=== PATIENT | female | born 1990 | race Caucasian/White ===

== ENCOUNTER → 2017-04-22 | Outpatient (CLI) | payer BC ==
[~2017-04-22] MED LIST: CLIN300C2 PO; PRENTAB26 PO
== END | disposition home or self-care (01) ==
LOC: C.LAB1850 14:28
PROVIDERS: ATTEND Obstetrics & Gynecology
DX: O20.0 Threatened abortion (principal); Z3A.00 Weeks of gestation of pregnancy not specified

== ENCOUNTER → 2017-05-06 | Outpatient (CLI) | payer BC ==
[~2017-05-06] MED LIST changes: -CLIN300C2 PO
[2017-05-06 11:33] LABS: URINE APPEARANCE CLEAR (CLEAR); URINE BILIRUBIN NEG (NEG); URINE COLOR YELLOW; URINE EPITHELIAL CELL AUTO 20-30 /lpf (0-5); URINE NITRITE NEG (NEG); URINE PH 6.5 (4.5-7.5); URINE SPECIFIC GRAVITY 1.023 (1.000-1.030); UROBILINOGEN NEG (NEG)
[2017-05-06 11:34] LABS: MANUAL MICROSCOPIC REQUIRED? NO; REVIEW REQ? NO
== END | disposition home or self-care (01) ==
LOC: C.LABSPEC 10:56
PROVIDERS: ATTEND Obstetrics & Gynecology
DX: Z34.01 Encounter for supervision of normal first pregnancy, first trimester (principal)

== ENCOUNTER → 2017-05-17 | Outpatient (CLI) | payer BC ==
[2017-05-17 14:31] LABS: BASO % 0.2 %; BASO ABS # 0.03 K/uL (0-0.2); COMPLETE YES; EOS % 1.3 %; HEMATOCRIT 37.4 % (37-47); IG% 0.2 %; LYMPH % 23.2 %; LYMPH ABS # 2.89 K/uL (1.2-3.4); MEAN CELL VOLUME 86.6 fL (80-100); MEAN CORPUSCULAR HEMOGLOBIN 29.6 pg (25-34); MEAN CORPUSCULAR HGB CONC 34.2 g/dl (32-36); MEAN PLATELET VOLUME 9.6 fL (7.4-10.4); MONO % 7.2 %; NEUT % 67.9 %; PLATELET COUNT 284 K/uL (130-400); RED BLOOD COUNT 4.32 M/uL (4.2-5.4); WHITE BLOOD COUNT 12.44 K/uL (4.8-10.8)
[2017-05-21 02:05] LABS: CHLAMYDIA TRACH RNA*** NOT DETECTED (NOT DETECTED); GC (NEIS GONORRHOEAE)RNA** NOT DETECTED (NOT DETECTED)
== END | disposition home or self-care (01) ==
LOC: C.LAB1850 12:55
PROVIDERS: ATTEND Obstetrics & Gynecology
DX: Z34.01 Encounter for supervision of normal first pregnancy, first trimester (principal); Z3A.00 Weeks of gestation of pregnancy not specified

== ENCOUNTER → 2017-05-17 | Outpatient (CLI) | payer BC | END | disposition home or self-care (01) | LOC: C.PAPS 16:39 | PROVIDERS: ATTEND Obstetrics & Gynecology | DX: Z34.01 Encounter for supervision of normal first pregnancy, first trimester (principal) ==

== ENCOUNTER → 2017-07-04 | Outpatient (CLI) | payer OTHER | END | disposition home or self-care (01) | LOC: C.LAB1850 09:17 | PROVIDERS: ATTEND Obstetrics & Gynecology | DX: Z34.02 Encounter for supervision of normal first pregnancy, second trimester (principal) ==

== ENCOUNTER → 2017-07-13 | Outpatient (CLI) | payer OTHER | END | disposition home or self-care (01) | LOC: C.LAB1850 09:06 | PROVIDERS: ATTEND Obstetrics & Gynecology | DX: O28.1 Abnormal biochemical finding on antenatal screening of mother (principal) ==

== ENCOUNTER 2017-08-20 10:37 | Outpatient (CLI) | payer OTHER | END 2017-08-20 11:15 | disposition home or self-care (01) | LOC: C.OPB 10:37 → C.LD 10:39 → C.OPB 11:15 | PROVIDERS: ATTEND Obstetrics & Gynecology | DX: Z34.02 Encounter for supervision of normal first pregnancy, second trimester (principal); Z3A.23 23 weeks gestation of pregnancy; W00.9XXA Unspecified fall due to ice and snow, initial encounter ==

== ENCOUNTER 2017-08-20 11:22 | Emergency (ER) | payer OTHER ==
[~2017-08-20] VITALS: Ht 165.1 cm; Wt 117.1 kg
[2017-08-20 11:39] VITALS: BP 139/90; TEMP 36.8; Ht 165.1 cm; Wt 117.1 kg
--- NOTE | 2017-08-20 12:51 | DIAGNOSTIC IMAGING REPORT ---
L KNEE 3 VIEWS HISTORY: 27 years-old Female fall, injury, eval fracture, dislocation acute left knee pain status post fall COMPARISON: None available TECHNIQUE: 3 views of the left knee FINDINGS: There is mild soft tissue swelling about the knee which is most pronounced medially without acute fracture, dislocation or significant degenerative changes. No opaque foreign body or large joint effusion identified. IMPRESSION: Mild soft tissue swelling without fracture or dislocation. The above report was generated using voice recognition software. It may contain grammatical, syntax or spelling errors. Electronically signed by: Yuniel Nolan M.D. 08/20/2017 12:50 PM Dictated Date/Time: 08/20/2017 12:49 PM
--- NOTE | 2017-08-20 13:21 | EMERGENCY ROOM VISIT NOTE ---
ED Visit Note First contact with patient: 11:44 CHIEF COMPLAINT: Left knee pain HISTORY OF PRESENT ILLNESS: This 19-year-old female patient presents to the emergency department by private vehicle after sustaining an injury to the left knee from falling earlier today. Patient states she was walking into work and slipped on some ice, fell forward onto her left anterior knee, and then forward onto her abdomen. The patient denies abdominal pain and denies any other injuries besides their knee. She did not hit her head, denies LOC. The patient notes some mild swelling and bruising. There is pain with bending and straightening the knee. She reports mild swelling and also has noted an abrasion to the anterior knee. She rates the pain as achy and 5/10. The patient states they are able to walk on it, but have been walking with a limp to reduce pain. No numbness or tingling of the extremity. No previous injuries or surgeries to this knee. No ankle, foot or hip pain. Patient is currently 23 weeks , she was evaluated upstairs in labor and delivery and cleared by them prior to being sent to the ER for further evaluation of her knee. REVIEW OF SYSTEMS: A 6 system review of systems was completed with positives and pertinent negatives listed in the HPI. ALLERGIES: Reviewed in chart. MEDICATIONS: Reviewed in chart. PMH: No significant past medical or surgical history. SOCIAL HISTORY: Lives at home with family. She denies tobacco use, alcohol or recreational drug use. PHYSICAL EXAM: Vital Signs: Reviewed Nurse's notes, vital signs stable. GENERAL : Pleasant and cooperative, no acute distress, but appears in some pain, well- developed, well-nourished. MENTAL STATUS: Alert, oriented to person place and time, and cooperative. MUSCULOSKELETAL: The left knee is mildly swollen. There is mild ecchymosis. There is no joint effusion present. The patient is tender over the patella and surrounding area. There is a superficial abrasion over the anterior knee, no active bleeding or debris within the wound. There is no joint line tenderness. The patella does not subluxate. Range of motion is somewhat limited due to pain. Strength of the quads and hamstrings is 5/5. No ligamentous instability of the knee joints. There is no pain with varus and valgus stressing. The foot and toes are warm and well-perfused. Dorsalis pedis pulse 2+. Sensation to pain and light touch is intact. Capillary refill less than 2 seconds. EMERGENCY DEPARTMENT COURSE: I examined the patient. Differential diagnosis includes knee contusion, abrasion, hematoma, joint effusion, fracture, subluxation, among others. X-rays of the left knee were reviewed by myself and read by radiology and reveal no acute bony abnormality. The patient was offered a knee immobilizer and crutches, she declined these. Her abrasion was cleansed, antibiotic ointment applied and her knee was wrapped with an Cale wrap. She was able to walk on the knee without much pain. I did instruct her to rest the knee as much as possible and keep it elevated, and to follow-up with her primary care provider if her knee pain is not improving. She was educated regarding wound care, follow-up, and return precautions, she verbalized understanding. The patient was discharged home in stable condition and ambulatory. Current/Historical Medications Scheduled Multivit/Min/Iron/Fol Ac/Pren ( Vitamin), 1 TAB PO DAILY Allergies Coded Allergies: Penicillins (Verified Allergy, Unknown, RASH, 08/20/17) Vital Signs Date Time Temp Pulse Resp B/P (MAP) Pulse Ox O2 Delivery O2 Flow Rate FiO2 08/20/17 13:34 90 18 99 08/20/17 11:39 36.8 95 20 139/90 96 Room Air Departure Information Impression Primary Impression: Contusion of knee, left Additional Impression: Abrasion of knee, left Dispostion Home / Self-Care Condition GOOD Referrals No Doctor, Assigned (PCP) Patient Instructions ED Contusion Lower Ext, My [facility] Additional Instructions You have been treated in the Emergency Department for Knee Pain. X-ray of your knee does not show any fracture or dislocation. For pain control, you can use the following [id number] medicines (if >12 yo): - Regular strength (325mg/tab) Tylenol (acetaminophen) 2 tabs every 4-6 hours as needed. Do not exceed 10 tablets in a 24 hour period. Avoid taking more than 3000 mg of Tylenol per day. This includes any other sources of acetaminophen you may take on a regular basis. If this is a recent injury (<24 hrs), ice can be applied to the area of pain for the first 3 days to help decrease pain and inflammation. Ice massages can be performed by freezing water in a paper cup, peeling back the cup to expose the ice and then massaging over the affected area. Keep the wound on your knee clean and dry. You may wash with soap and warm water, then pat dry. Do not submerge the wound under water until the sutures have been removed. Use an antibiotic ointment for 3-4 days, then let wound dry. Keep covered with a Band-Aid. As with all lacerations and abrasions, there may be temporary or permanent nerve damage or scarring. Keep covered when in sun until fully healed, then sunscreen to the area for one year to help prevent darkening of the scar. Vitamin E oil if desired two weeks after suture removal for reduction of scar. Please follow-up with your primary care provider in the next 3-4 days if you are still having pain in the knee. Please seek immediate medical attention for any signs of infection (increasing redness, pain, swelling, pus drainage, streaking up the leg, fever/chills). Work Instructions Return To Work: 1 day Problem Qualifiers Primary Impression: Contusion of knee, left Encounter type: initial encounter Qualified Codes: S80.02XA - Contusion of left knee, initial encounter Additional Impression: Abrasion of knee, left Encounter type: initial encounter Qualified Codes: S80.212A - Abrasion, left knee, initial encounter
[2017-08-20 13:34] VITALS: PULSE 90; O2SAT 99
== END 2017-08-20 13:36 | disposition home or self-care (01) ==
LOC: C.EDB 11:24 → C.EDD 13:36
DX: S80.02XA Contusion of left knee, initial encounter (principal); S80.212A Abrasion, left knee, initial encounter; W00.0XXA Fall on same level due to ice and snow, initial encounter; Y99.0 Civilian activity done for income or pay; Z33.1 Pregnant state, incidental; Z88.0 Allergy status to penicillin

== ENCOUNTER → 2017-09-24 | Outpatient (CLI) | payer OTHER | END | disposition home or self-care (01) | LOC: C.LABSPEC 11:01 | PROVIDERS: ATTEND Obstetrics & Gynecology | DX: Z34.03 Encounter for supervision of normal first pregnancy, third trimester (principal) ==

== ENCOUNTER → 2017-10-05 | Outpatient (CLI) | payer OTHER ==
[2017-10-05 10:45] LABS: HEMATOCRIT 36.2 % (37-47); HEMOGLOBIN 12.1 g/dL (12.0-16.0)
== END | disposition home or self-care (01) ==
LOC: C.LAB1850 08:54
PROVIDERS: ATTEND Obstetrics & Gynecology
DX: Z34.03 Encounter for supervision of normal first pregnancy, third trimester (principal)

== ENCOUNTER 2017-10-09 17:46 | Outpatient (CLI) | payer OTHER ==
[~2017-10-09] VITALS: Ht 165.1 cm; Wt 115.5 kg
[2017-10-09] MEDS ORDERED: LACTATED RINGER'S 1000ML 1,000 ML IV SCH (18:08)
[2017-10-09] MEDS ORDERED: BETAMETH SOD PHOS/ACETATE IA 6 MG/ML IM STA (18:11)
[2017-10-09] MEDS ORDERED: CEFAZOLIN SOD 1000MG/7.5 ML IV PUSH IV STA (18:12)
[2017-10-09] MEDS ORDERED: AZITHROMYCIN 250 MG TAB PO ONE (18:15)
[2017-10-09] MEDS ORDERED: CEFAZOLIN IV 1,000 MG in SYRINGE 0 ML IV SCH (18:45)
[2017-10-09 18:51] VITALS: Ht 165.1 cm; Wt 115.5 kg
== END 2017-10-09 19:42 | disposition short-term general hospital (02) ==
LOC: C.LD 17:46 → C.OPB 17:46
PROVIDERS: ATTEND Obstetrics & Gynecology
DX: O42.913 Preterm premature rupture of membranes, unspecified as to length of time between rupture and onset of labor, third trimester (principal); Z3A.30 30 weeks gestation of pregnancy; Z22.330 Carrier of Group B streptococcus

== ENCOUNTER 2020-11-04 07:39 | Inpatient (IN) ==
[2020-11-04] MEDS ORDERED: LACTATED RINGER'S 1,000 ML IV PRN (07:55)
[2020-11-04] MEDS ORDERED: OXYTOCIN 30 UNITS/500 ML BAG IV PRN ×2 (07:55→18:15)
[2020-11-04 08:15] LABS: Hematocrit (blood only) 32.6 % (37-47); Hemoglobin 10.8 g/dL (12.0-16.0); Mean Corpuscular Hemoglobin 26.7 pg (25-34); Mean Corpuscular Hgb Conc 33.1 g/dL (32-36); Mean Corpuscular Volume 80.7 fL (80-100); Mean Platelet Volume 8.8 fL (7.4-10.4); Platelet Count 281 K/uL (130-400); RDW Coefficient of Variation 14.1 % (11.5-14.5); RDW Standard Deviation 41.4 fL (36.4-46.3); Red Blood Count 4.04 M/uL (4.2-5.4); White Blood Count 10.71 K/uL (4.8-10.8)
[2020-11-04] MEDS ORDERED: PENICILLIN G POTASSIUM 6 MU in DEXTROSE 5% 250 ML IV ONE (08:30)
--- NOTE | 2020-11-04 09:19 | History & Physical Report ---
Date of Service November 04, 2020 Assessment & Plan (1) : 30 y/o at 39w0d who presents for IOL/AROM. A pos. RI. GBS pos. - 5cm dilated during 11/03 office visit (/-2). membranes stripped at that time. 6cm (/-1) dilated during admission cervical check today - per patient preference, will not be using pitocin - AROM attempt at 0955: trickle of clear fluid. May need to reattempt AROM. - category 1 tracing - slightly elevated blood pressure x 1. 141/78 this admission. 124/76 on repeat. asymptomatic, no visual changes, headache, nausea/vomiting, or abd pain. Patient denies hx of HTN. Plt count this admission 288. no additional labwork indicated at this time. office BPs were 120s-130s over 80s. - NPO - LR 125/hr - anesthesiology consulted - continue routine care - 11/04 covid test neg (2) Insulin controlled gestational diabetes mellitus (GDM) during : - stable - per patient: home BSG goal was fasting <80. <110 after meals. 40-45u novolin n qhs. novolog 16u breakfast. 20-28u lunch and 20-28u dinner - last insulin was this AM 6am - BSG 103 this admission - check BSG q4h (3) Group B streptococcal infection in : - had penicillin rash during childhood. patient states ok to receive because has received it during first and did not have reaction - will treat w/ penicillin G q4h until delivery (4) History of delivery, currently : - s/p weekly Keshia from 16w-36w Admission and Anticipated Discharge Date Admission Date: November 04, 2020 History of Present Illness Primary Care Provider: NO PCP Mary Beth Katherine is a 30 y/o at 39w0d ([facility] 11/11/20 via [facility]) who presents for AROM/IOL. complicated by insulin-controlled GDM, GBS+, and hx of labor (completed [place]). + contractions; + movement; - fluid loss; + bloody show Had regular appointments with OB. Labs: (04/08/20) Blood type: A pos Antibody screen: neg H.8 (today) Hct: 32.6 (today) WBC: 10.71 (today) Plt: 281 (today) Rubella: immune RPR: nonreactive Gonorrhea: not detected Chlamydia: not dtected HIV: neg HbSAg: neg GBS: pos 10/18/20 Labs Reviewed: cfdna insufficient first drawn, low risk second. akh cf/sma neg previous akh GDM during prior Allergies Allergy/AdvReac Type Severity Reaction Status Date / Time Penicillins Allergy Unknown RASH, HIVES Verified 11/03/20 14:41 Home Medications Medication Instructions Recorded Confirmed Type prenat.vits,zi,eua-oktp-skohf 1 tab PO DAILY 08/14/19 11/03/20 History acetone (urine) test #50 ea 05/03/20 11/03/20 Rx blood sugar diagnostic #150 ea 05/03/20 11/03/20 Rx blood-glucose meter #1 ea 05/03/20 11/03/20 Rx lancets #102 ea 05/03/20 11/03/20 Rx insulin NPH isoph U-100 human 100 10 unit SUBCUT QPM #15 ml 08/09/20 11/03/20 Rx unit/mL (3 mL) subcutaneous pen pen needle, diabetic 32 gauge x #100 ea 08/09/20 11/03/20 Rx 32" Novolog Flexpen U-100 Insulin 100 8 unit SUBCUT TID #15 ml NS 09/23/20 11/03/20 Rx unit/mL (3 mL) subcutaneous Patient History Medical History (Updated 11/04/20 @ 10:05 by Stevenson Castaneda MD) Gestational diabetes History of chicken pox History of rib fracture Missed with demise before 20 completed weeks of gestation Obesity Polycystic ovarian syndrome premature rupture of membranes (PPROM) with unknown onset of labor Surgical History History of mandibular surgery S/P dilatation and curettage S/P tonsillectomy S/P wisdom tooth extraction Family History Grandfather Myocardial infarction Grandmother Myocardial infarction Grandfather (Maternal) Cardiac disorder Diabetes Mother Depression Hypertension Gestational diabetes Brother Down syndrome Denies family history of Ovarian cancer Prostate cancer Breast cancer Colorectal cancer Social History (Updated 04/04/20 @ 11:18 by Bernie Bansal Smoking Status: Never smoker Second Hand Exposure: No; Hx Alcohol Use: No Hx Substance Use: No Preferred Language: [place] Islander Communication Ability: Effective Visual Impairment: No Limitations Hearing Ability: Normal Beliefs That Will Affect Care: None marital status: marital status details: Nicola Scherer (27) [phone] Current Living Situation: Spouse and Family Current Living Situation Comment: lives with spouse, son, no pets current occupational status: employed current occupation: [employer] Feels Safe at Home: Yes Childhood Exposure to Second-Hand Smoke: No Dental Care, Regularly: Yes Physical Activity Frequency: Does not Exercise Seatbelt Use: always Sunscreen Use: Yes Assistive Devices: Glasses Review of Systems Denies fever, chills, sweats Denies shortness of breath, difficulty breathing, chest pain, palpitations, chest pressure. Mild breast discomfort + heartburn Denies dysuria. Denies headache or changes in vision. Denies nausea/vomiting. Denies numbness, tingling, weakness. Denies calf pain. Denies current mood complaints. Physical Exam Physical Exam: General: Alert, oriented. No acute distress. Cardiac: Regular rate and rhythm, no murmurs/rubs/gallops. Respiratory: Clear to auscultation bilaterally, no wheezes/rales/rhonchi. No increased work of breathing. Symmetrical chest rise. No respiratory distress. Abdomen: Gravid. Pelvic: Dilation 6cm; Effacement 80%; Station -1. Soft. Posterior. EFW low 7s. Exam per Dr. Valle. AROM attempt at 0955. Trickle of clear fluid. Lower Extremities: No lower extremity edema or swelling. No deep calf pain. Camden's negative bilaterally Results & Data ([facility]) Vital Signs (Past 12 Hours) Vital Signs Temp Pulse Resp BP 11/04/20 08:40 36.9 C 18 11/04/20 08:00 83 141/78 H Code Status & VTE Plan Code Status full VTE Prophylaxis Plan VTE Prophylaxis will be ordered: No Monitoring External Monitor External FHT and external uterine monitors used; Category 1 tracing; moderate FHT variability. baseline 140bpm initially, more recently 130bpm. + accelerations. + early deceleration. No variable or late decelerations. Tocodynamometer External toco: no sustained contractions Supervising Physician Co-Signing Physician Notes Resident Physician Supervision Note: I interviewed and examined the patient. Discussed with Dr.Lawrence Castaneda and agree with findings and plan as documented in the note. Any exceptions or clarifications are listed here: [None] Documented By: Angela Valle MD, FACOG (1) Weeks of gestation: 39 weeks Qualified Code(s): Z3A.39 - 39 weeks gestation of
[2020-11-04] MEDS: PENICILLIN G POTASSIUM 3 MU in DEXTROSE 5% 100 ML IV PRN ×2 (12:30→16:18)
[2020-11-04] MEDS ORDERED: LIDOCAINE 1% LOCAL 20 ML VIAL ONE (17:53)
[2020-11-04] MEDS ORDERED: HYDROCORTISONE ACETATE 25 MG SUPP PR PRN (18:15)
[2020-11-04] MEDS ORDERED: SUPERCREAM 0.870% 15 GM JAR EXT PRN (18:15)
[2020-11-04] MEDS ORDERED: oxyCODONE/ACETAMINOPHEN 5mg/325mg TAB PO PRN (18:15)
[2020-11-04] MEDS ORDERED: BENZOCAINE 20% AER SPR 82.5 GM CAN EXT PRN (18:15)
[2020-11-04] MEDS ORDERED: DIPHTHERIA/TETANUS/PERTUSSIS 0.5 ML SYR/VIAL IM ONE (18:15)
[2020-11-04] MEDS ORDERED: bisacodyL 10 MG SUPP PR PRN (18:15)
--- NOTE | 2020-11-04 18:33 | Delivery Summary ---
Vaginal Delivery Summary Date of Service November 04, 2020 The patient is a 30-year-old 3 para 0-1-0-1 1 white female who presents at 39 weeks for induction of labor because of gestational diabetes controlled with insulin. The was also complicated by positive group B strep vaginal culture. She presented to labor and delivery this morning at 5 cm dilation. She was having no discernible contractions upon arrival. She received her first dose of penicillin and approximately an hour later her membranes were ruptured for clear fluid. She progressed in labor to full dilation, and pushed effectively over intact perineum for delivery of a viable female infant. After the head was delivered the rest of the delivered easily, and was placed on the mother's abdomen for further attention and drying. The infant was vigorous and moving all 4 limbs. The placenta was expressed intact with a three-vessel cord. This was an unmedicated , and a first- degree vaginal laceration was repaired with 3-0 chromic in the standard fashion. 1% lidocaine was used to anesthetize the area of the repair. Estimated blood loss was 200 cc. bleeding was controlled with dilute Pitocin. Mother and are doing well after delivery. Vaginal Delivery Summary and 1st Degree [facility] [place] Charge Delivery Type Details: and 1st Degree LAC
[2020-11-04] MEDS: IBUPROFEN 600 MG TAB PO PRN ×2 (19:01→23:12)
[2020-11-04] MEDS: DOCUSATE SODIUM 100 MG CAP PO SCH (21:12)
[2020-11-05] MEDS: ACETAMINOPHEN 325 MG TAB PO PRN (02:23)
[2020-11-05] MEDS: IBUPROFEN 600 MG TAB PO PRN ×5 (04:16→21:19)
[2020-11-05 05:57] LABS: Hemoglobin 9.4 g/dL (12.0-16.0); Mean Corpuscular Hemoglobin 26.6 pg (25-34); Mean Corpuscular Hgb Conc 32.4 g/dL (32-36); Mean Corpuscular Volume 82.2 fL (80-100); Platelet Count 253 K/uL (130-400); RDW Coefficient of Variation 14.2 % (11.5-14.5); RDW Standard Deviation 42.7 fL (36.4-46.3); Red Blood Count 3.53 M/uL (4.2-5.4); White Blood Count 14.43 K/uL (4.8-10.8)
--- NOTE | 2020-11-05 06:40 | Obstetrical Progress Note ---
Date of Service <Stevenson Castaneda MD - Last Filed: 11/05/20 07:48> November 05, 2020 Assessment & Plan <Stevenson Castaneda MD - Last Filed: 11/05/20 07:48> (1) state: 30 y/o at 39w0d who is s/p on 11/04, PPD1. A pos. RI. GBS pos, s/p PCN x3. - meeting PPD1 milestones - ambulating, , voiding, lochia mild - vitals stable - cbc reviewed. Hb 9.4. daily iron supp until 6 wk f/u - continue routine care - tentative dispo 5/30 AM (2) Group B streptococcal infection in : - s/p PCN treatment (3) Insulin controlled gestational diabetes mellitus (GDM) during : - BSG check at 6 week f/u Subjective <Stevenson Castaneda MD - Last Filed: 11/05/20 07:48> Ambulation: ambulating normally Voiding: no voiding problems Passing Gas:: Yes Diet Tolerance:: regular diet Lochia:: Moderate Feeding Type:: breast feeding Current Pain Level(1-10): 2 (4 when cramping) For dispo, tentatively tomorrow am, will discuss w/ . No complaints. Doing well. Review of Systems Denies fever, chills, sweats Denies shortness of breath, chest pain, palpitations. Denies breast pain. + mild burning w/ urination, attributes to stitches Denies headache or changes in vision. Denies nausea/vomiting. Denies numbness, tingling, weakness. Denies calf pain. Denies mood complaints. Physical Exam <Stevenson Castaneda MD - Last Filed: 11/05/20 07:48> General: Alert, oriented. No acute distress. Cardiac: Regular rate and rhythm, no murmurs/rubs/gallops. Respiratory: Clear to auscultation bilaterally, no wheezes/rales/rhonchi. No respiratory distress. Abdomen: , soft. Uterus: Uterine fundus firm, palpable periumbilical. Lower Extremities: No lower extremity edema or swelling. No deep calf pain. Camden's negative bilaterally. Results & Data ([facility]) <Stevenson Castaneda MD - Last Filed: 11/05/20 07:48> Vital Signs (Past 12 Hours) Vital Signs Temp Pulse Pulse Resp BP BP Pulse Ox 11/05/20 04:00 36.8 C 72 16 118/77 98 11/04/20 23:10 36.7 C 83 18 126/82 99 11/04/20 20:55 37.2 C 85 18 128/84 97 11/04/20 20:11 36.7 C 78 18 134/68 11/04/20 19:56 79 131/70 11/04/20 19:41 75 16 127/64 11/04/20 19:26 88 132/63 11/04/20 19:11 36.8 C 84 18 142/66 H 11/04/20 18:56 42 L 140/72 11/04/20 18:41 78 134/68 11/04/20 18:40 18 11/04/20 18:27 88 134/64 11/04/20 18:25 18 Medications Administered <Angela Valle MD, FACOG - Last Filed: 11/05/20 08:03> Co-Signing Physician Notes Resident Physician Supervision Note: I interviewed and examined the patient. Discussed with Dr. Stevenson Castaneda and agree with findings and plan as documented in the note. Any exceptions or clarifications are listed here: [None] Documented By: Angela Valle MD, FACOG
[2020-11-05] MEDS: PRENATAL VITAMIN 1 TAB PO SCH (07:47)
[2020-11-05] MEDS: DOCUSATE SODIUM 100 MG CAP PO SCH ×2 (07:47→21:20)
[2020-11-05] MEDS ORDERED: bisacodyL 5 MG TABEC PO SCH (20:00)
[2020-11-06] MEDS: IBUPROFEN 600 MG TAB PO PRN ×2 (01:20→05:08)
[2020-11-06 06:10] LABS: Hematocrit (blood only) 28.9 % (37-47); Hemoglobin 9.3 g/dL (12.0-16.0)
[2020-11-06] MEDS: PRENATAL VITAMIN 1 TAB PO SCH (07:47)
[2020-11-06] MEDS: ACETAMINOPHEN 325 MG TAB PO PRN (07:47)
[2020-11-06] MEDS: DOCUSATE SODIUM 100 MG CAP PO SCH (07:47)
--- NOTE | 2020-11-06 08:54 | Obstetrical Progress Note ---
Date of Service November 06, 2020 Assessment & Plan (1) state: PPD#2 doing well. DC instructions reviewed, followup in office 6w. Subjective Ambulation: ambulating normally Voiding: no voiding problems Diet Tolerance:: regular diet Lochia:: Moderate Review of Systems All systems reviewed & are unremarkable except as noted in HPI & below Physical Exam Constitutional WD/WN, vitals as above no acute distress Respiratory normal respiratory effort Cardiovascular Rate/Rhythm: regular rate and regular rhythm Gastrointestinal (Abdomen) Inspection/Auscultation: abdomen normal to inspection; abdomen not distended Percussion/Palpation: abdomen soft Genitourinary OB Exam Abdomen: + fundal height Fundus: + firm; not tender Results & [facility] ([facility]) Vital Signs (Past 12 Hours) Vital Signs Temp Pulse Resp BP Pulse Ox 11/06/20 07:25 36.8 C 64 18 117/74 99 11/06/20 07:20 36.5 C 75 18 125/80 75 L 11/05/20 23:45 36.5 C 70 18 114/78
== END 2020-11-06 09:50 | disposition home or self-care (01) | DRG 807 ==
LOC: 4S1 07:39 → 4S2 21:02

== ENCOUNTER 2020-11-28 15:26 | Inpatient (IN) ==
--- NOTE | 2020-11-28 17:18 | Emergency Department Note ---
Impression & Plan Abscess of breast, Acute breast pain ED Provider Note NAME: BEAU GARCIA AGE: 30 SEX: F : 1990 ARRIVES VIA: Walk-In INFORMANT: Patient, ED PROVIDER(S): Sukhi Pat MD Chief Complaint: Breast pain, possible abscess HPI: Patient does present with almost 10 days of discomfort over the right jenn[address]. The patient states initially this is thought to be a clogged duct and the patient had been applying gentle massage as well as warm compresses. Patient states that subsequently the patient did have an outpatient ointment with IMPLEMENTATION SPECIALIST and started on dicloxacillin. The patient was subsequently seen in [facility] and did have an ultrasound which showed possible abscess. The patient was then started on clindamycin instead of the dicloxacillin. The patient did have an outpatient appointment with the IMPLEMENTATION SPECIALIST was referred here for further evaluation and treatment patient denies any fevers or chills. Patient denies any nausea or vomiting. The patient denies any complications or issues. ROS: See HPI for pertinent positives and negatives. A total of 10 systems were reviewed and otherwise negative. Past medical history: See below Surgical history: See below Social history: See below Physical Exam: GENERAL: A mask. NAD, non-toxic. EYE EXAM: Normal conjunctiva. PERRL, no anisocoria and EOM's grossly intact w/o pain. NECK: Supple, no nuchal rigidity, no adenopathy, non-tender. No signs of meningismus. Chest: Right breast with 12 x 8 cm area of erythema with central area of induration with no obvious fluctuance or drainage. LUNGS: Clear to auscultation. Normal chest wall mechanics. HEART: NSR, no MRG. ABDOMEN: Abdomen soft, non-tender, normo-active bowel sounds, no masses, no rebound or guarding. BACK: No CVA TTP. SKIN: No rashes and no bruising. UPPER EXTREMITIES: Upper extremities are grossly normal. LOWER EXTREMITIES: Grossly normal, no edema. NEURO EXAM: A&O x3, cranial nerves II-XII grossly intact, normal speech, moves all 4 extremities on command w/o issue. Differential diagnoses: Cellulitis, abscess, MRSA infection, DVT, necrotizing fasciitis, dermatitis, drug eruption, allergic reaction, as well as other pathologies. Course: Patient was seen and evaluated the bedside. Full history physical exam was performed. Imaging Studies: See below Cardiac monitoring: An order was placed for continuous cardiac monitoring. The monitor shows a rate of 76 with sinus rhythm. MDM: Patient was seen due to concern for possible abscess versus receiving abscess. The patient was ordered Rocephin as the patient was ordered already on MRSA therapy. Given the indurated area unsure initially as whether not there was an area to be drained. Breast ultrasound ordered along with blood work. Blood work fairly unremarkable. Ultrasound does show concern for sick centimeter abscess versus phlegmon. I did speak the on-call general surgery team Wero Rendon PA-C and the patient was admitted to the general surgery service pending operative treatment tomorrow morning. Past Med/Surg History Medical History History of chicken pox History of rib fracture Missed with demise before 20 completed weeks of gestation Obesity Polycystic ovarian syndrome premature rupture of membranes (PPROM) with unknown onset of labor Surgical History History of mandibular surgery S/P dilatation and curettage S/P tonsillectomy S/P wisdom tooth extraction Family History Grandfather Myocardial infarction Grandmother Myocardial infarction Grandfather (Maternal) Cardiac disorder Diabetes Mother Depression Hypertension Gestational diabetes Brother Down syndrome Denies family history of Ovarian cancer Prostate cancer Breast cancer Colorectal cancer Social History Smoking Status: Never smoker Second Hand Exposure: No; Hx Alcohol Use: No Hx Substance Use: No Preferred Language: Czech Communication Ability: Effective Visual Impairment: No Limitations Hearing Ability: Normal Beliefs That Will Affect Care: None marital status: marital status details: Nicola Scherer (27) [phone] Current Living Situation: Spouse and Family Current Living Situation Comment: lives with spouse, son, no pets current occupational status: employed current occupation: [employer]- [employer] Feels Safe at Home: Yes Childhood Exposure to Second-Hand Smoke: No Dental Care, Regularly: Yes Physical Activity Frequency: Does not Exercise Seatbelt Use: always Sunscreen Use: Yes Assistive Devices: None Allergies Allergies Allergy/AdvReac Type Severity Reaction Status Date / Time No Known Drug Allergies Allergy Unknown Verified 11/28/20 18:17 Home Meds Home Medications Medication Instructions Recorded Confirmed prensameera.vits,zi,[id number]-lrnd-cbusi 1 tab PO QAM 08/14/19 11/28/20 acetaminophen [Tylenol Extra 1,000 mg PO Q6H PRN 11/28/20 11/28/20 Strength] clindamycin HCl 300 mg capsule 300 mg PO Q4H cap 11/28/20 11/28/20 ibuprofen 600 mg PO Q6H PRN 11/28/20 11/28/20 Results & Data (ED) Vital Signs Vital Signs - 24 hr 11/28/20 15:29 11/28/20 16:27 11/28/20 19:32 Temperature 36.7 C Temperature Source Temporal Artery Scan Pulse Rate 79 78 Pulse Rate [Right Finger] 75 78 Pulse Rhythm Regular Pulse Rhythm [Right Finger] Regular Pulse Strength Normal Pulse Strength [Right Finger] Normal Respiratory Rate 20 18 20 Respiratory Effort / Characteristics Non-Labored Spontaneous Non-Labored Respiratory Depth Normal Normal Respiratory Pattern Regular Regular Blood Pressure 137/93 Blood Pressure [Right Arm] 148/87 H 134/84 Blood Pressure Mean 107 Blood Pressure Mean [Right Arm] 107 100 Blood Pressure Position Sitting Blood Pressure Position [Right Arm] Sitting Pulse Oximetry 100 97 98 Oxygen Delivery Method Room Air Room Air Room Air Sepsis Recent Fever Within 48 Hours No Sepsis New/Unexplained Change in Mental Status No Sepsis Action Taken by Nursing No Action Required 11/28/20 19:53 11/28/20 20:46 11/28/20 22:24 Temperature Temperature Source Pulse Rate Pulse Rate [Right Finger] 74 60 76 Pulse Rhythm Pulse Rhythm [Right Finger] Regular Regular Regular Pulse Strength Pulse Strength [Right Finger] Normal Normal Normal Respiratory Rate 18 19 18 Respiratory Effort / Characteristics Non-Labored Non-Labored Non-Labored Respiratory Depth Normal Normal Normal Respiratory Pattern Regular Regular Regular Blood Pressure Blood Pressure [Right Arm] 139/84 140/72 131/76 Blood Pressure Mean Blood Pressure Mean [Right Arm] 102 94 94 Blood Pressure Position Blood Pressure Position [Right Arm] Sitting Pulse Oximetry 99 99 99 Oxygen Delivery Method Room Air Room Air Room Air Sepsis Recent Fever Within 48 Hours Sepsis New/Unexplained Change in Mental Status Sepsis Action Taken by Correction Medications Current Medication List: was personally reviewed by me Laboratory Data Attestation: I reviewed the patient's lab results. Result diagrams: 11/28/20 18:48 11/28/20 18:48 Lab Results 11/28/20 11/28/20 11/28/20 Range/Units 18:48 18:48 21:58 WBC 9.62 (4.8-10.8) K/uL RBC 4.01 L (4.2-5.4) M/uL Hgb 10.6 L (12.0-16.0) g/dL Hct 32.9 L (37-47) % MCV 82.0 (80-100) fL MCH 26.4 (25-34) pg MCHC 32.2 (32-36) g/dL RDW Std Deviation 41.7 (36.4-46.3) fL RDW Coeff of Ovidio 13.8 (11.5-14.5) % Plt Count 392 (130-400) K/uL MPV 8.6 (7.4-10.4) fL Immature Gran % (Auto) 0.3 % Neut % (Auto) 67.5 % Lymph % (Auto) 21.0 % Crenshaw % (Auto) 6.8 % Eos % (Auto) 4.0 % Baso % (Auto) 0.4 % Neut # (Auto) 6.50 (1.4-6.5) K/uL Lymph # (Auto) 2.02 (1.2-3.4) K/uL Crenshaw # (Auto) 0.65 H (0.11-0.59) K/uL Eos # (Auto) 0.38 (0-0.5) K/uL Baso # (Auto) 0.04 (0-0.2) K/uL Immature Gran # (Auto) 0.03 H (0.00-0.02) K/uL Sodium 139 (136-145) mmol/L Potassium 4.0 (3.5-5.1) mmol/L Chloride 108 H (98-107) mmol/L Carbon Dioxide 23 (21-32) mmol/L Anion Gap 8.0 (3-11) BUN 12 (7-18) mg/dl Creatinine 0.69 (0.6-1.2) mg/dl Est Cr Clr Drug Dosing 151.8 ml/min Est GFR ( Amer) 134.4 ml/min Est GFR (Non-Af Amer) 116.0 ml/min BUN/Creatinine Ratio 17.7 (10-20) Glucose 86 (70-99) mg/dl Calcium 9.0 (8.5-10.1) mg/dl Total Bilirubin 0.2 (0.2-1) mg/dl AST 13 L (15-37) U/L ALT 33 (12-78) U/L Alkaline Phosphatase 88 (45-117) U/L Total Protein 7.5 (6.4-8.2) gm/dl Albumin 3.1 L (3.4-5.0) gm/dl Globulin 4.4 H (2.5-4.0) gm/dl Albumin/Globulin Ratio 0.7 L (0.9-2) COVID-19 Eval Order Covid19 at [facility] Administered Medications Discontinued Medications Sodium Chloride (Nss 1000ml) 1,000 mls @ 999 mls/hr IV .Q1H1M ALVAREZ Stop: 11/28/20 18:45 Last Infusion: 11/28/20 19:43 Dose: 0 mls/hr Documented by: [id number] Admin: 11/28/20 18:29 Dose: 999 mls/hr Documented by: [id number] Ceftriaxone Sodium (Rocephin) 2,000 mg in 70 mls @ 140 mls/hr IV NOW STA Stop: 11/28/20 18:11 Last Infusion: 11/28/20 19:05 Dose: 0 mls/hr Documented by: [id number] Admin: 11/28/20 18:29 Dose: 140 mls/hr Documented by: [id number] Ketorolac Tromethamine (Ketorolac 30 Mg/Ml Vial) 30 mg IV NOW STA Stop: 11/28/20 17:42 Last Admin: 11/28/20 18:30 Dose: 30 mg Documented by: [id number] Imaging Data Radiologist's Impression: Breast Ultrasound 11/28/20 17:41 ULTRASOUND RIGHT BREAST CLINICAL HISTORY: Right breast pain, erythema, and swelling. Breast-feeding. Clinical concern for abscess. COMPARISON STUDY: No priors. FINDINGS: Real-time grayscale and color flow sonography of the soft tissues of the right breast is performed at the indicated site of interest. There is an approximately 6.0 x 3.2 x 3.2 cm region of soft tissue edema, complex multiloculated fluid, and phlegmonous change identified in the right breast at the 9:00 position. There is peripheral as well as internal flow on color imaging. IMPRESSION: 1. There is evidence of cellulitis with a 6 cm complex region of phlegmonous change/developing abscess identified in the 9:00 right breast at the indicated site of interest. 2. Note that this does not constitute a cancer screening examination. Follow-up to resolution is recommended. Electronically signed by: Nahum Mathews M.D. 11/28/2020 8:41 PM Discharge Plan Visit Data Chief Complaint: Breast Pain/Problems Stated Complaint: RIGHT BREAST PAIN, REDDNESS RIGHT BREAST ED Provider: Sukhi Pat Discharge Problem: Abscess of breast, Acute breast pain Forms Stand Alone Forms: [facility] [employer] Prescriptions Prescriptions: No Action prenat.vits,zi,bhy-dlec-nbnst Tablet 1 tab PO QAM RF: 0 clindamycin HCl 300 mg capsule 300 mg PO Q4H RF: 0 acetaminophen [Tylenol Extra Strength] 500 mg Tablet 1,000 mg PO Q6H PRN (Reason: Pain) RF: 0 ibuprofen 200 mg Tablet 600 mg PO Q6H PRN (Reason: Pain) RF: 0
[2020-11-28] MEDS ORDERED: KETOROLAC 30 MG/ML VIAL IV STA (17:41)
[2020-11-28] MEDS ORDERED: cefTRIAXone SODIUM 2,000 MG/70 ML BAG IV STA (17:42)
[2020-11-28] MEDS ORDERED: SODIUM CHLORIDE 0.9% 1000ML 1,000 ML IV SCH (17:45)
[2020-11-28 19:02] LABS: Basophils # (auto) 0.04 K/uL (0-0.2); Basophils % (auto) 0.4 %; Eosinophils # (auto) 0.38 K/uL (0-0.5); Hematocrit (blood only) 32.9 % (37-47); Hemoglobin 10.6 g/dL (12.0-16.0); Immature Granulocytes # (auto) 0.03 K/uL (0.00-0.02); Immature Granulocytes % (auto) 0.3 %; Lymphocytes # (auto) 2.02 K/uL (1.2-3.4); Mean Corpuscular Hemoglobin 26.4 pg (25-34); Mean Corpuscular Hgb Conc 32.2 g/dL (32-36); Mean Platelet Volume 8.6 fL (7.4-10.4); Monocytes # (auto) 0.65 K/uL (0.11-0.59); Monocytes % (auto) 6.8 %; Neutrophils % (auto) 67.5 %; Platelet Count 392 K/uL (130-400); RDW Coefficient of Variation 13.8 % (11.5-14.5); RDW Standard Deviation 41.7 fL (36.4-46.3); Red Blood Count 4.01 M/uL (4.2-5.4); White Blood Count 9.62 K/uL (4.8-10.8)
[2020-11-28 19:48] LABS: Albumin Level 3.1 gm/dl (3.4-5.0); BUN Creatinine Ratio 17.7 (10-20); Creatinine Clr Calc Pharmacy 151.8 ml/min; Est GFR (African American) 134.4 ml/min
[2020-11-28 19:51] LABS: Albumin Globulin Ratio 0.7 (0.9-2); Bilirubin,Total 0.2 mg/dl (0.2-1); Globulin 4.4 gm/dl (2.5-4.0); Total Protein 7.5 gm/dl (6.4-8.2)
--- NOTE | 2020-11-28 20:42 | Ultrasound Report ---
ULTRASOUND RIGHT BREAST CLINICAL HISTORY: Right breast pain, erythema, and swelling. Breast-feeding. Clinical concern for abs cess. COMPARISON STUDY: No priors. FINDINGS: Real-time grayscale and color flow sonography of the soft tissues of the right breast is pe rformed at the indicated site of interest. There is an approximately 6.0 x 3.2 x 3.2 cm region of sof t tissue edema, complex multiloculated fluid, and phlegmonous change identified in the right breast a t the 9:00 position. There is peripheral as well as internal flow on color imaging. IMPRESSION: 1. There is evidence of cellulitis with a 6 cm complex region of phlegmonous change/developing absces s identified in the 9:00 right breast at the indicated site of interest. 2. Note that this does not constitute a cancer screening examination. Follow-up to resolution is joe mmended. Electronically signed by: Nahum Mathews M.D. 11/28/2020 8:41 PM
--- NOTE | 2020-11-28 21:57 | History & Physical Report ---
Date of Service November 28, 2020 Assessment & Plan (1) Breast abscess: Because of the patient's symptoms, duration, and size of the abscess I feel drainage is indicated. I have presented the patient with options including needle aspiration with ultrasound guidance or incision and drainage in the operating room. After discussing the pros and cons of each option she is opted for incision and drainage in the operating room as she feels that this will provide the most definitive drainage. We will therefore proceed as follows: Analgesics will be provided Antiemetics will be provided Patient be allowed a regular diet we will make her n.p.o. at midnight tonight When she is n.p.o. we will hydrate her gently with IV fluids We will continue antibiotics. The patient has received Rocephin in the emergency department which we will continue A Covid test will be checked We will check a urine test Further recommendation was made based on operative findings as well as remainder of her clinical course as unfolds We will use SCDs for DVT prevention we will avoid chemical means due to her planned surgical procedure History of Present Illness Chief Complaint: Right breast pain Primary Care Provider: Mabel Story MD This is a 30-year-old female who presented to [facility] emergency department secondary to pain in her right breast. Patient notes that she is approximately 3 weeks as has been breast-feeding without difficulty until about 10 days ago. Approximately 10 days ago she felt as though she had a clogged milk duct. With previous pregnancies she is experience this problem before and they usually resolve with modalities such as massage and heat. She tried these interventions without success. She noted that the lateral aspect of her right breast began to feel fluctuant and red. She contacted her [facility] physician and placedon doxycycline approximately 5 days ago. Patient was out of town in [place], [place] visiting friends when she noted that the area of her breast was becoming more red and inflamed and she was seen in an emergency department. The patient says that she did have an ultrasound which was read as inconclusive and the patient was ultimately placed on clindamycin which she has been taking for 2 days. Despite this the area of her breast continues to get worse. She specifically denies any fevers, shakes, chills. She has not had any nausea vomiting or diarrhea. In addition she denies any cuts scrapes or abrasions to the affected area and has not noted any drainage of the affected area. In the emergency department the patient had labs and imaging which I independently reviewed. At approximately the 9:00 area of her right breast the patient was noted by ultrasound to have approximately 6 cm complex region that was felt to be phlegmonous with a possible developing abscess. She also had labs were CBC revealed her white blood cell count was 9.6, hemoglobin was 10.6, and platelet count was within the normal range. Chemistry profile showed her sodium, potassium, BUN, and creatinine were within normal range. A Covid test has been performed and is pending. At the time of my interview the patient was resting in bed and was not noted to be in distress. Allergies Allergy/AdvReac Type Severity Reaction Status Date / Time No Known Drug Allergies Allergy Unknown Verified 11/28/20 18:17 Home Medications Medication Instructions Recorded Confirmed Type prenat.vits,zi,btb-rccz-icely 1 tab PO QAM 08/14/19 11/28/20 History acetaminophen [Tylenol Extra 1,000 mg PO Q6H PRN 11/28/20 11/28/20 History Strength] clindamycin HCl 300 mg capsule 300 mg PO Q4H cap 11/28/20 11/28/20 History ibuprofen 600 mg PO Q6H PRN 11/28/20 11/28/20 History Past Med/Surg History Medical History History of chicken pox History of rib fracture Missed with demise before 20 completed weeks of gestation Obesity Polycystic ovarian syndrome premature rupture of membranes (PPROM) with unknown onset of labor Surgical History History of mandibular surgery S/P dilatation and curettage S/P tonsillectomy S/P wisdom tooth extraction Family History Grandfather Myocardial infarction Grandmother Myocardial infarction Grandfather (Maternal) Cardiac disorder Diabetes Mother Depression Hypertension Gestational diabetes Brother Down syndrome Denies family history of Ovarian cancer Prostate cancer Breast cancer Colorectal cancer Social History Smoking Status: Never smoker Second Hand Exposure: No; Hx Alcohol Use: No Hx Substance Use: No Preferred Language: Haitian Communication Ability: Effective Visual Impairment: No Limitations Hearing Ability: Normal Hand Laminator Required: No Beliefs That Will Affect Care: None marital status: marital status details: Nicola Scherer (27) [phone] Current Living Situation: Spouse Current Living Situation Comment: lives with spouse, son, no pets current occupational status: employed 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- [employer] Feels Safe at Home: Yes Safety Concerns: Feels Safe At This Time Childhood Exposure to Second-Hand Smoke: No Dental Care, Regularly: Yes Physical Activity Frequency: Does not Exercise Seatbelt Use: always Sunscreen Use: Yes Assistive Devices: None Review of Systems Constitutional: no fever and no chills Eyes: no diplopia Ear, Nose, Mouth, Throat: no ear pain Respiratory: no cough Cardiovascular: no chest pain Gastrointestinal: no nausea and no vomiting Genitourinary: no dysuria Musculoskeletal: no back pain Integumentary: no rash Neurologic: no localized weakness Physical Exam Constitutional: well developed and well nourished; no acute distress Eyes: no conjunctival abnormality ENMT: Ears: no hearing impairment Neck: trachea midline Respiratory: normal respiratory effort, lungs clear to auscultation Cardiovascular: Rate/Rhythm: regular rate and regular rhythm Chest (Breasts): Additional Comments: With female RN audit partner present I examined the patient's right breast. At approximately 9 o'clock position she had approximately a 6 cm area of fluctuance. There is also surrounding erythema. I did not appreciate any crepitus in the soft tissue. There is no drainage noted. There were no open wounds. The area was painful to palpation. There is some slight warmth noted to the affected area. Gastrointestinal (Abdomen): Percussion/Palpation: abdomen soft; abdomen nontender Musculoskeletal: No lower extremity edema or calf tenderness. Neurologic: moves all extremities Psychiatric: A+Ox3, euthymic affect Results & Data Results & Data ([facility]) Vital Signs (Past 12 Hours) Vital Signs Temp Pulse Pulse Resp BP BP Pulse Ox 11/28/20 20:46 60 19 140/72 99 11/28/20 19:53 74 18 139/84 99 11/28/20 19:32 78 78 20 134/84 98 11/28/20 16:27 75 18 148/87 H 97 11/28/20 15:29 36.7 C 79 20 137/93 100 Supervising Physician Co-Signing Physician Notes I personally saw and evaluated the patient with Sonny Rendon PA-C and agree with the assessment and plan 30 yo female with 6cm right breast abscess -Admit to surgery -IV ABX -To OR for I&D right breast abscess -Consent obtained, risks discussed including bleeding, infection, scar PG Care Time/CCT Total # of Minutes Spent Total Time Spent with Patient: Total time spent is greater than 50% in coordination of care (as documented) at patient's floor/unit and/or counseling patient: Coding Level of Care Code 05889 Initial Inpt Care Lvl 3 Diagnoses Breast abscess N61.1
[2020-11-29] MEDS ORDERED: ondansetron HCL 6 MG in DEXTROSE 5% 50 ML IV PRN (00:16)
[2020-11-29] MEDS: LACTATED RINGER'S 1,000 ML IV SCH ×2 (00:35→12:10)
[2020-11-29] MEDS ORDERED: KETOROLAC TROMETHAMINE 15 MG/ML VIAL IV PRN (00:47)
[2020-11-29 03:07] LABS: Pregnancy Test, Urine Negative (Negative)
[2020-11-29] MEDS: cefTRIAXone SODIUM 2,000 MG in DEXTROSE 5% 50 ML IV SCH (05:52)
--- NOTE | 2020-11-29 08:17 | History & Physical Bridge Note ---
Date of Service November 29, 2020 History & Physical Bridge Note I have examined the patient, reviewed the History & Physical and in the interval since the performance of the History & Physical I have noted the following changes of clinical significance: no changes noted
[2020-11-29] MEDS ORDERED: SCOPOLAMINE 1 MG TDSY TD ONE (08:32)
--- NOTE | 2020-11-29 08:35 | Anesthesiology Consultation ---
Date of Service November 29, 2020 Assessment & Plan (1) Encounter for pre-operative examination: Chart Review Chart Review: Acceptable Risk for Surgery and Patient NOT seen in Pre Admission Testing Consults Requested none History Surgery Operation Date: 11/29/20 08:20 Proposed Procedures p Right Breast Abscess Incision and Drainage - Dank Mcmullen DO Height/Weight Height: 5 ft 5 in Weight: 111.9 kg Allergies Allergy/AdvReac Type Severity Reaction Status Date / Time No Known Drug Allergies Allergy Unknown Verified 11/28/20 18:17 Medications Home Medications Medication Instructions Recorded Confirmed Last Taken prenat.vits,zi,[id number] 1 tab PO QAM 08/14/19 11/28/20 11/24/20 acetaminophen [Tylenol Extra 1,000 mg PO Q6H PRN 11/28/20 11/28/20 11/28/20 12:00 Strength] 1000 mg clindamycin HCl 300 mg capsule 300 mg PO Q4H cap 11/28/20 11/28/20 11/28/20 ibuprofen 600 mg PO Q6H PRN 11/28/20 11/28/20 11/28/20 09:00 800 mg Active Medications Generic Name Dose Route Start Last Admin Trade Name Freq PRN Reason Stop Dose Admin Lactated Ringer's 1,000 mls @ 75 mls/hr 11/29/20 00:16 11/29/20 00:35 Lr IV 12/29/20 00:15 75 mls/hr .[id number] ALVAREZ Administration Ceftriaxone Sodium 2,000 mg/ 70 mls @ 100 mls/hr 11/29/20 06:00 11/29/20 06:37 Dextrose IV 12/06/20 05:59 Infused Q24H ALVAREZ Infusion Protocol Ketorolac Tromethamine 15 mg 11/29/20 00:47 11/29/20 01:05 Ketorolac Tromethamine 15 Mg/Ml Vial IV 12/04/20 00:46 15 mg Q6H PRN Administration Pain NPO Date Last Intake of Fluids: 11/28/20 Time Last Intake of Fluids: 23:00 Date Last Intake of Solids: 11/28/20 Time Last Intake of Solids: 22:00 Past Medical History Medical History History of chicken pox History of rib fracture Missed with demise before 20 completed weeks of gestation Obesity Polycystic ovarian syndrome premature rupture of membranes (PPROM) with unknown onset of labor Past Family History Family History Grandfather Myocardial infarction Grandmother Myocardial infarction Grandfather (Maternal) Cardiac disorder Diabetes Mother Depression Hypertension Gestational diabetes Brother Down syndrome Denies family history of Ovarian cancer Prostate cancer Breast cancer Colorectal cancer Past Surgical History Surgical History History of mandibular surgery S/P dilatation and curettage S/P tonsillectomy S/P wisdom tooth extraction Social History Smoking Status: Never smoker Hx Alcohol Use: No Alcohol type: hard liquor Hx Substance Use: No Physical Exam Vital Signs Last Vital Signs Temp 36.4 C L 11/29/20 08:17 Pulse 107 H 11/29/20 08:17 Resp 20 11/29/20 08:17 BP 124/101 H 11/29/20 08:17 Pulse Ox 95 11/29/20 08:17 Testing Laboratory Results 11/28/20 18:48 11/28/20 18:48 Urine Test Negative (Negative) 11/29/20 02:45 11/29/20 02:45 Urine Test Negative
[2020-11-29] MEDS ORDERED: ATROPINE SULFATE 0.1 MG/ML 10ML SYR IV PRN (08:44)
[2020-11-29] MEDS ORDERED: PHENYLEPHRINE 100MCG/ML 5ML SYR IV PRN (08:44)
[2020-11-29] MEDS ORDERED: ePHEDrine sulfate 50 MG/ML AMP IV PRN (08:44)
[2020-11-29] MEDS ORDERED: ONDANSETRON INJ 2 MG/ML 2 ML VIAL IV PRN (08:44)
[2020-11-29] MEDS ORDERED: LABETALOL HCL IV 5 MG/ML 20ML IV PRN (08:44)
[2020-11-29] MEDS ORDERED: BUPIVACAINE/EPINEPHRINE 0.5% MPF 1:200,000 30 ML VIAL ONE (08:46)
[2020-11-29] MEDS ORDERED: MIDAZOLAM HCL 1 MG/ML 2ML VIAL ONE (08:51)
[2020-11-29] MEDS ORDERED: fentaNYL citrate 100 MCG/2 ML VIAL ONE (08:52)
[2020-11-29] MEDS ORDERED: ONDANSETRON INJ 2 MG/ML 2 ML VIAL ONE (09:07)
[2020-11-29] MEDS ORDERED: DEXAMETHASONE SOD INJ 4 MG/ML VIAL ONE (09:07)
[2020-11-29] MEDS ORDERED: LIDOCAINE 2% 2 ML VIAL/AMP(20MG/ML) INFIL ONE (09:11)
[2020-11-29] MEDS ORDERED: PROPOFOL IV EMULSION 10 MG/ML 20 ML VIAL IV ONE (09:11)
--- NOTE | 2020-11-29 09:31 | Post Operative Brief Note ---
PG Immediate Post Op with CF Date of Surgery November 29, 2020 Pre & Post Diagnosis Operation Date: 11/29/20 08:20 Pre-Op Diagnosis: Right BREAST ABSCESS Post-Op Diagnosis: Right BREAST ABSCESS I identified the patient and participated in the time-out.: Yes Procedure Operation Date: 11/29/20 08:20 Actual Procedures p Right Breast Abscess Incision and Drainage(Right) - Dank Mcmullen DO Surgeon Dank Mcmullen DO Gluing Crew Leader None Estimated Blood Loss 5 Findings Consistent with Post-Op Diagnosis Fluids 600 mL crystalloid Specimens Specimen Description: Cultures: 1) Right Breast Abscess Fluid Anesthesia Type General Complications none Disposition Disposition: Recovery Room
--- NOTE | 2020-11-29 09:37 | Operative Report ---
PG Post Operative Report Pre & Post Diagnosis Operation Date: 11/29/20 08:20 Pre-Op Diagnosis: Right BREAST ABSCESS Post-Op Diagnosis: Right BREAST ABSCESS I identified the patient and participated in the time-out.: Yes Procedure Operation Date: 11/29/20 08:20 Actual Procedures p Right Breast Abscess Incision and Drainage(Right) - Dank Mcmullen DO Surgeon Dank Mcmullen DO [place] Surf[employer] None Estimated Blood Loss 5 Findings Consistent with Post-Op Diagnosis Purulent fluid upon entrance to abscess cavity Fluids 600mL crystalloid Specimens Abscess fluid for culture Drains None Anesthesia Type General Complications none Disposition Disposition: Recovery Room Indications 30 yo female with right breast abscess Description of Procedure Patient was brought to the operating room and placed in the supine position with her arms abducted. At this time she underwent general anesthesia without any problem. She was given appropriate pre-operative antibiotics. Her right breast was prepped and draped in the usual sterile fashion. A timeout was called. The procedure was verified as Incision and Drainage of right breast abscess. Surgical, anesthesia and nursing teams agreed and the procedure was begun. Using a #11 blade scalpel, an incision was made over the maximally fluctuant area in the right breast. Purulent fluid was encountered and cultured. Wide drainage was ensured. The cavity was probed and all loculations were broken up. The cavity was then irrigated until clear. Hemostasis was achieved using electrocautery. Hemostasis was complete. The cavity was then packed with 1 inch Iodoform packing. Sterile dressing was applied. Needle and sponge counts correct x 2. At this point the patient was awakened from anesthesia having remained stable throughout the entire case and transported to PACU. I attest to the content of the Intraoperative Record and any orders documented therein. Any exceptions are noted below.
[2020-11-29] MEDS: fentaNYL citrate 100 MCG/2 ML VIAL IV PRN ×3 (09:54→10:06)
--- NOTE | 2020-11-29 10:12 | Anesthesiology Progress Note ---
Date of Service November 29, 2020 Anesthesia Post Procedure Vital Signs Vital Signs: Temp Pulse Pulse Pulse Resp BP BP 11/29/20 10:05 58 L 18 120/67 11/29/20 09:50 55 L 20 119/69 11/29/20 09:40 60 17 113/67 11/29/20 09:34 36.9 C 113 H 19 136/87 11/29/20 08:17 36.4 C L 107 H 20 124/101 H 11/29/20 07:07 36.9 C 63 18 142/90 H 11/29/20 00:18 36.7 C 72 16 11/29/20 00:08 76 18 147/94 H 11/28/20 22:24 76 18 11/28/20 20:46 60 19 11/28/20 19:53 74 18 11/28/20 19:32 78 78 20 11/28/20 16:27 75 18 11/28/20 15:29 36.7 C 79 20 137/93 BP Pulse Ox 11/29/20 10:05 98 11/29/20 09:50 100 11/29/20 09:40 100 11/29/20 09:34 100 11/29/20 08:17 95 11/29/20 07:07 99 11/29/20 00:18 133/85 99 11/29/20 00:08 99 11/28/20 22:24 131/76 99 11/28/20 20:46 140/72 99 11/28/20 19:53 139/84 99 11/28/20 19:32 134/84 98 11/28/20 16:27 148/87 H 97 11/28/20 15:29 100 Pain Intensity Right Breast: Pain Intensity: 1 Transfer of Care Handoff Completed per policy Notes Mental Status: alert / awake / arousable Patient Amnestic to Procedure: Yes Nausea / Vomiting: adequately controlled Pain: adequately controlled Airway Patency, RR, SpO2: stable & adequate BP & HR: stable & adequate Hydration State: stable & adequate Anesthetic Complications: no major complications apparent and Pt Satisfied with anesthetic care
[2020-11-29] MEDS: ACETAMINOPHEN 500 MG TAB PO PRN ×2 (12:15→18:13)
[2020-11-29] MEDS: PRENATAL VITAMIN 1 TAB PO SCH (13:45)
[2020-11-29] MEDS: IBUPROFEN 600 MG TAB PO PRN (15:19)
[2020-11-30] MEDS: IBUPROFEN 600 MG TAB PO PRN ×2 (01:10→08:46)
[2020-11-30] MEDS: LACTATED RINGER'S 1,000 ML IV SCH (01:44)
[2020-11-30] MEDS: ACETAMINOPHEN 500 MG TAB PO PRN ×2 (04:27→11:50)
[2020-11-30] MEDS: cefTRIAXone SODIUM 2,000 MG in DEXTROSE 5% 50 ML IV SCH (05:37)
[2020-11-30] MEDS: PRENATAL VITAMIN 1 TAB PO SCH (08:46)
--- NOTE | 2020-11-30 09:30 | Surgery Progress Note ---
Date of Service November 30, 2020 Assessment & Plan (1) Abscess of breast: POD#1 I&D of R breast abscess Patient clinically doing well and feels improvement in her symptoms Erythema of breast much improved Will change packing when present for teaching purposes Plan to discharge to home today. Case management working on setting up home care if able. Plan for daily packing changes and will send out on a course of po abx Follow up with Dr. Mcmullen in clinic within 1-2 weeks Admission and Anticipated Discharge Date Admission Date: November 28, 2020 Subjective Patient feeling well today. Has some soreness, but it is greatly improved. Hoping to pump from her R breast as she feels like it is getting full. Offers no other complaints. Physical Exam Physical Exam: awake/alert Constitutional: well developed and well nourished; no acute distress Chest (Breasts): Additional Comments: R breast, area of erythema much improved, outer bandage dressing changed some serosang output on dressing. Packing in place. minimal tenderness to palpation. Results & Data ([facility]) Vital Signs (Past 12 Hours) Vital Signs Temp Pulse Resp BP Pulse Ox 11/30/20 06:30 36.5 C 43 L 15 144/86 H 98 11/30/20 02:42 36.5 C 59 L 15 146/88 H 98 11/29/20 22:24 36.6 C 52 L 16 124/81 96 PG Care Time/CCT Total # of Minutes Spent Total Time Spent with Patient: Total time spent is greater than 50% in coordination of care (as documented) at patient's floor/unit and/or counseling patient: Coding Level of Care Code None Diagnoses Abscess of breast N61.1
--- NOTE | 2020-12-07 10:37 | Discharge Summary ---
Date of Service December 07, 2020 Admission HPI Per Admitting Provider This is a 30-year-old female who presented to [facility] emergency department secondary to pain in her right breast. Patient notes that she is approximately 3 weeks as has been breast-feeding without difficulty until about 10 days ago. Approximately 10 days ago she felt as though she had a clogged milk duct. With previous pregnancies she is experience this problem before and they usually resolve with modalities such as massage and heat. She tried these interventions without success. She noted that the lateral aspect of her right breast began to feel fluctuant and red. She contac maryanne her [employer] physician and placedon doxycycline approximately 5 days ago. Patient was out of town in [place], [place] visiting friends when she noted that the area of her breast was becoming more red and inflamed and she was seen in an emergency department. The patient says that she did have an ultrasound which was read as inconclusive and the patient was ultimately placed on clindamycin which she has been taking for 2 days. Despite this the area of her breast continues to get worse. She specifically denies any fevers, shakes, chills. She has not had any nausea vomiting or diarrhea. In addition she denies any cuts scrapes or abrasions to the affected area and has not noted any drainage of the affected area. In the emergency department the patient had labs and imaging which I i ndependently reviewed. At approximately the 9:00 area of her right breast the patient was noted by ultrasound to have approximately 6 cm complex region that was felt to be phlegmonous with a possible developing abscess. She also had labs were CBC revealed her white blood cell count was 9.6, hemoglobin was 10.6, and platelet count was within the normal range. Chemistry profile showed her sodium, potassium, BUN, and creatinine were within normal range. A Covid test has been performed and is pending. At the time of my interview the patient was resting in bed and was not noted to be in distress. Principal Diagnosis breast abscess Discharge Exam awake/alert Constitutional well developed and well nourished; no acute distress Chest (Breasts) Additional Comments: R breast wound packing changed, serosang drainage on nu- gauze, some induration noted, erythema improved Discharge Data Allergies Allergy/AdvReac Type Severity Reaction Status Date / Time No Known Drug Allergies Allergy Unknown Verified 12/06/20 13:42 Consultations 11/28/20 21:41 ED Decision to Admit Stat Procedures Performed Operation Date: 11/29/20 08:20 Actual Procedures p Right Breast Abscess Incision and Drainage(Right) - Dank Mcmullen DO Ordered Studies 11/28/20 17:41 US breast RT limited Stat Hospital Course (1) Abscess of breast: This is a 30y F who is 3 weeks post who presented to the [facility] ED on 11/28/20 with complaints of R breast pain. US imaging obtained revealed evidence of cellulitis with a 6 cm complex region of phlegmonous change/developing abscess. The patient was admitted to our service and started on IV abx. On 11/29 the patient went to the OR with Dr. Mcmullen for I&D of breast abscess. The patient tolerated the procedure well, see op note for full details. The patient recovered in the PACU and was transferred to the med/surg unit in stable condition. She continued on IV abx. Her diet was advanced as tolerated and pain controlled on prn pain medication. On POD#1 the patient was transitioned to oral Augmentin. Her dressing/wound packing was changed with nu-gauze, 4x4, and medical tape. Wound overall looking improved. She was able to use the breast for pumping milk without issues. She was deemed stable for discharge to home with plans to continue daily packing changes and complete a course of po abx. The patient was instructed to follow up in clinic within 1-2 weeks. Total Time Total Time Spent Total Time Spent (In Minutes): 20 Discharge Plan Discharge Items Patient Disposition: Home - Home Health Services Reason For Visit: BREAST ABSCESS Discharge Diagnosis: incision and drainage of breast abscess Activity: Per Instructions section Lifting: No more than 25 pounds Bathing: No limitations Exercise/Sports: Gradually increase as tolerated Driving/Machine Use: Resume 1 day after discharge Non-emergency contact: Surgeon Call non-emergency contact if: you have any medication questions, your symptoms worsen, your pain is not controlled, your pain is unusual for you, your pain is concerning for you, you have a fever, your temperature is above 101.5, your wound has increased redness, your wound has increased drainage and your wound pain has increased Follow-up/Referrals: Mabel Story MD [Primary Care Provider] - 12/13/20 9:00 am ([facility]) Dank Mcmullen, DO [Physician] - (A community case manager will call you with a date and time for a 1 week follow up appt. Staff were unsucessful reaching Dr. Bernard office this afternoon.) Diet: Regular Addtl Attending Provider Instructions: Continue daily dressing changes at home. Remove old dressing and packing from wound. Replace packing to wound with 1/2" iodoform or nu-gauze using a q-tip or tweezers to pack, cover wound with dry 4x4 gauze, and adhere with medical tape. You have been prescribed an antibiotic called Augmentin. It is compatible to take with breast feeding, but you should monitor your for rash, diarrhea, yeast infection. Pending Studies at Discharge: No Stand-Alone Forms: [facility], Smoking Cessation Medications and DC Order Prescriptions: New amoxicillin-pot clavulanate [Augmentin] 875-125 mg tablet 1 tab PO BID Qty: 14 RF: 0 Continued prenat.vits,zi,[id number] Tablet 1 tab PO QAM RF: 0 acetaminophen [Tylenol Extra Strength] 500 mg Tablet 1,000 mg PO Q6H PRN (Reason: Pain) RF: 0 ibuprofen 200 mg Tablet 600 mg PO Q6H PRN (Reason: Pain) RF: 0 Discontinued clindamycin HCl 300 mg capsule 300 mg PO Q4H RF: 0 Discharge Orders: Discharge Order (Routine); Ordered 11/30/20 Ordered By: Maryann Roberts Admission Data Admit Date/Time: 11/28/20 22:04 Attending Provider: Dank Mcmullen Admit Provider: Dank Mcmullen Primary Care Provider: Mabel Story Other Providers: Dank Mcmullen ; [facility] Other Interventions: Discharge Summary Assessment (RN) Last Done: 11/30/20 12:36 Coding Level of Care Code D/C Day Management <30 mins Diagnoses Abscess of breast N61.1
== END 2020-11-30 15:05 | disposition home health service (06) | DRG 584 ==
LOC: ED 15:26 → 3N 22:04